=== PATIENT | male | born 1965 | race Caucasian/White ===

== ENCOUNTER 2018-09-25 09:20 | Inpatient (IN) | payer OTHER ==
[~2018-09-25] VITALS: Ht 175.3 cm; Wt 92.5 kg
[2018-09-25] VITALS (25 sets, daily range): BP systolic 109–134; BP diastolic 69–86; PULSE 82–104; RESP 14–20; Ht 175.3 cm; Wt 92.5 kg
--- NOTE | 2018-09-25 12:49 | PREAC ---
Date/Time of Note Date/Time of Note DATE: 09/25/18 TIME: 12:47 Anesthesia Eval and Record Evaluation Time Pre-Procedure Interview DATE: 09/25/18 TIME: 12:47 Age 52 Sex male NPO: 8 hrs Preoperative diagnosis Lt shoulder mass Planned procedure Excision of lt shoulder mass with skin graft Past Medical History Past Medical History: Includes GI: Morbid obesity Heme: Anemia Surgery & Anesthesia Issues No known issue Meds Anticoagulation: No Beta Carlos within 24 hr: No Reason Beta Carlos not given: Pt. not on B-Carlos No Active Prescriptions or Reported Meds Meds reviewed: Yes Allergies Coded Allergies: No Known Allergy (Unverified , 09/25/18) Allergies Reviewed: Yes Labs/Studies Labs Reviewed: Reviewed by anesthesiologist Blood Bank Test 09/25/18 10:55 Antibody Screen NEGATIVE Blood Product Summary Counts Blood Type A POSITIVE Crossmatch Red Blood Cells test: N/A Studies: ECG Pre-procedure Exam Last vitals Vital Signs Date Temp Pulse Resp B/P (MAP) Pulse Ox O2 O2 Flow FiO2 Time Delivery Rate 09/25/18 99.0 89 16 126/73 100 Room Air 11:56 (90) Airway: Adequate mouth opening, Adequate thyromental dist Mallampati: Mallampati II Teeth: Normal Lung: Normal Heart: Normal ASA Physical Status ASA physical status: 2 Emergency: None Planned Pain Management Parenteral pain med Pre-operative Attestations Prior to commencing anesthesia and surgery, the patient was re-evaluated, there was verification of: *The patient's identity *The results of appropriate recent lab work and preoperative vital signs *The above evaluation not changing prior to induction *Anesthetic plan, risk benefits, alternative and complications discussed with patient/family; questions answered; patient/family understands, accepts and wishes to proceed. JOSELUIS MALONE MD Sep 25, 2018 12:49
[2018-09-25] MEDS ORDERED: MIDAZOLAM 1 MG/ML 2 ML INJ ONE (13:21)
[2018-09-25] MEDS ORDERED: PROPOFOL 20 ML ONE (14:28)
[2018-09-25] MEDS ORDERED: CEFAZOLIN 1 GM INJ ONE (14:28)
[2018-09-25] MEDS ORDERED: LIDOCAINE 2% (SDV) 5 ML INJ ONE (14:28)
[2018-09-25] MEDS ORDERED: ONDANSETRON 4 MG INJ ONE (14:28)
--- NOTE | 2018-09-25 14:46 | OPR ---
DATE OF OPERATION: 09/25/2018 PREOPERATIVE DIAGNOSES: 1. Large fungating tumor, left anterior thoracic region. 2. Satellite tumor, left anterior shoulder. POSTOPERATIVE DIAGNOSES: 1. Large fungating tumor, left anterior thoracic region. 2. Satellite tumor, left anterior shoulder. PROCEDURES: 1. Resection of large fungating tumor, left anterior thoracic region with wide local skin flap advan cement closure. 2. Resection of tumor, left anterior shoulder with local skin flap advancement closure. ANESTHESIA: General. ANESTHESIOLOGIST: Solitario Olivares MD SURGEON: Venkat Mendosa MD WATCH REPAIRER APPRENTICE: Wing Disla MD INDICATIONS FOR PROCEDURE: The patient is an unfortunate 52-year-old male who presented with a large standing extremely large at least 15 cm exophytic fungating mass from the anterior thoracic region c linically consistent with malignancy. There was a satellite nodule approximately [address] over the anterior aspect of the shoulder. The patient was counseled as to need for resection of b oth masses as he was becoming anemic due to chronic blood loss from the tumor. He consented and was scheduled for surgery. DESCRIPTION OF PROCEDURE: The patient was brought to the operating theater, placed under general ane sthesia. The left anterior thoracic region and shoulder region were prepped and draped in usual ster ile fashion. Attention was first directed to the larger tumor. A wide elliptical incision was made around at the base of it and taking great care to ensure adequate margin. Subcutaneous tissue was th en dissected with combination of sharp dissection and cautery for significant neovascularization resu lting in bleeding that was controlled with cautery. Specimen was then transected, removed and sent f or permanent pathologic analysis. After controlling the lesion with cautery, FloSeal was placed with in the wound to facilitate further hemostasis. Due to the large defect, it was necessary to raise ve ry large skin flaps both medially and laterally. This was accomplished with cautery. The flaps were rotated together, held in place with towel clips and the skin was then reapproximated with 2-0 nylon sutures in vertical mattress fashion. Attention was then directed to the satellite tumor. Again, w xiao elliptical incision was made with 15-blade scalpel. Subcutaneous tissue was dissected with caute ry. The specimen was elevated, transected and removed and sent for permanent pathologic analysis. T he bleeding was controlled with cautery. Again, FloSeal was placed to maintain hemostasis and again medial and lateral skin flaps were created with cautery and the skin was reapproximated with 2-0 nylo n sutures in vertical mattress fashion. Both areas of the incision were widely infiltrated with 1% li docaine local anesthetic with epinephrine and sterile dressings were applied. The patient tolerated the procedure well. The estimated blood loss was approximately 50 mL. There were no complications a nd the patient was transported in stable condition to the recovery room. Dictated By: VENKAT STOUT/SOM Conf#: [id number] DID#: [id number]
--- NOTE | 2018-09-25 14:47 | PAC ---
Date/Time of Note Date/Time of Note DATE: 09/25/18 TIME: 14:46 Post-Anesthesia Notes Post-Anesthesia Note Last documented vital signs Vital Signs Date Temp Pulse Resp B/P (MAP) Pulse Ox O2 O2 Flow FiO2 Time Delivery Rate 09/25/18 99.0 89 16 126/73 100 Room Air 11:56 (90) Activity: WNL Respiratory function: WNL Cardiovascular function: WNL Mental status: Baseline Pain reasonably controlled: Yes Hydration appropriate: Yes Nausea/Vomiting absent: Yes Comments BP:116/56, P:92, Spo2:100%, T:98,8 JOSELUIS MALONE MD Sep 25, 2018 14:47
[2018-09-25] MEDS ORDERED: ONDANSETRON 4 MG INJ IV PRN ×2 (15:00→16:30)
[2018-09-25] MEDS ORDERED: DIPHENHYDRAMINE 50 MG INJ IV PRN (15:00)
[2018-09-25] MEDS ORDERED: FENTAnyl 50 MCG/ML VIAL IV PRN (15:00)
[2018-09-25] MEDS ORDERED: HYDROmorphONE 1 MG/5 ML IV SYRINGE IV PRN (15:00)
[2018-09-25] MEDS ORDERED: MEPERIDINE 25 MG INJ IV PRN (15:00)
[2018-09-25] MEDS: D5W-0.45 NACL + KCL 20 MEQ 1,000 ML IV SCH ×2 (15:01→22:01)
--- NOTE | 2018-09-25 15:01 | SIPON ---
Date/Time of Note Date/Time of Note DATE: 09/25/18 TIME: 14:59 Operative Report Preoperative Diagnosis Findings gated left anterior thoracic mass and an additional satellite tumor Postoperative Diagnosis Same Operation/Procedure Performed Resection of a fungating left anterior thoracic mass with local skin flap advancement closure and resection of satellite tumor also with local skin flap advancement closure Surgeon see signature line grants and contracts assistant Dr Disla Anesthesia: general Estimated blood loss: 10 - 50 ml's Transfusion Required none Specimen Large fungating mass left anterior thoracic region and tumor left anterior shoulder Grafts/Implants none Complications none KAT DAVIDSON MD Sep 25, 2018 15:01
[2018-09-25] MEDS: HYDROmorphONE 1 MG/5 ML IV SYRINGE IV PRN ×2 (15:28→18:28)
[2018-09-25] MEDS ORDERED: ACETAMINOPHEN 1000MG/100ML IV 100 ML IVPB PRN (15:30)
[2018-09-25] MEDS ORDERED: morphine 2 MG INJ IV PRN (15:30)
[2018-09-25] MEDS ORDERED: CEFAZOLIN 1 GM INJ IM SCH (15:30)
[2018-09-25] MEDS ORDERED: NACL 0.9% 3 ML SYG IV SCH (16:30)
[2018-09-25] MEDS ORDERED: HYDROCODONE/APAP (5/325) TAB PO PRN (16:30)
--- NOTE | 2018-09-25 16:35 | HP ---
Date/Time of Note Date/Time of Note DATE: 09/25/18 TIME: 16:35 Assessment/Plan VTE Prophylaxis Risk score (from Nsg)>0 risk: 3 SCD applied (from Nsg): Yes Pharmacological prophylaxis: other Lines/Catheters IV Catheter Type (from Nrsg): Peripheral IV Assessment/Plan Hospital Course Patient is a male with no significant past medical history except for a fungating mass on his left shoulder and anterior chest for the past few months. Patient had elective surgical removal from surgeon today and currently is sitting in the postanesthesia care unit, patient other than surgical site pain denies chest pain, shortness of breath, nausea, vomiting, headache, abdominal pain, leg pain, bowel or bladder dysfunction. Patient doing well post surgery, does not feel lightheaded or dizzy. Objective Physical exam General: Patient is laying in bed and answers questions appropriately Mentation: Patient is alert and oriented 4, Head: Normocephalic atraumatic Eyes: EOMI, pupils reactive to light Neck: Supple, nontender, midline Respiratory: Clear to auscultation bilaterally Cardiovascular: regular rate, no obvious murmurs Gastrointestinal: non-tender to palpation, bowel sounds heard. Neurological: Moves all extremities spontaneously Skin: Left shoulder surgical site, bandaged Assessment and plan Fungating left shoulder mass -Surgically removed by surgeon -Pathology pending, questionable tumor versus malignancy -Pain control Anemia -Patient received blood during surgical procedure -Secondary to bleeding from fungating mass -Get a stat H&H and continue to transfuse as needed Disposition -Observe overnight for pain and stability, general surgery recommendations appreciated HPI/ROS Admit Date/Time Admit Date/Time Sep 25, 2018 at 15:25 PMH/Family/Social Past Medical History Medications Current Medications Hydromorphone HCl (Dilaudid) 0.2 mg PACU PRN IV MILD PAIN 1-3; Start 09/25/18 at 15:00; Stop 09/25/18 at 19:00 Hydromorphone HCl (Dilaudid) 0.4 mg PACU PRN IV MOD PAIN 4-6 Last administered on 09/25/18at 15:28; Admin Dose 0.4 MG; Start 09/25/18 at 15:00; Stop 09/25/18 at 19:00 Fentanyl (Sublimaze) 25 mcg PACU ORDER PRN IV MILD PAIN 1-3; Start 09/25/18 at 15:00; Stop 09/25/18 at 19:00 Ondansetron HCl (Zofran Inj) 4 mg PACU ORDER PRN IV NAUSEA/VOMITING Last administered on 09/25/18at 15:28; Admin Dose 4 MG; Start 09/25/18 at 15:00; Stop 09/25/18 at 19:00 Meperidine HCl (Demerol) 25 mg PACU ORDER PRN IV .RIGORS Last administered on 09/25/18at 15:28; Admin Dose 25 MG; Start 09/25/18 at 15:00; Stop 09/25/18 at 19:00 Diphenhydramine HCl (Benadryl) 25 mg PACU ORDER PRN IV .PRURITUS; Start 09/25/18 at 15:00; Stop 09/25/18 at 19:00 Potassium Chloride/Dextrose/ Sod Cl 1,000 ml @ 125 mls/hr Q8H IV ; Start 09/25/18 at 15:01 Acetaminophen 100 ml @ 400 mls/hr Q6H PRN IVPB PAIN; Start 09/25/18 at 15:30; Stop 09/26/18 at 15:29 Cefazolin Sodium 50 ml @ 100 mls/hr Q6 IVPB ; Start 09/25/18 at 18:00 IV Flush (NS 3 ml) 3 ml PER PROTOCOL IV ; Start 09/25/18 at 16:30 Ondansetron HCl (Zofran Inj) 4 mg Q6H PRN IV NAUSEA/VOMITING; Start 09/25/18 at 16:30 Acetaminophen (Tylenol Tab) 650 mg Q6H PRN PO .PAIN 1-3 OR TEMP; Start 09/25/18 at 16:30 Acetaminophen/ Hydrocodone Bitart ([place] (5/325)) 1 tab Q6H PRN PO .PAIN 4-6; Start 09/25/18 at 16:30 Morphine Sulfate (morphine) 2 mg Q4H PRN IV .PAIN 7-10; Start 09/25/18 at 16:30 Coded Allergies: No Known Allergy (Unverified , 09/25/18) Exam/Review of Systems Vital Signs Vitals Vital Signs Date Temp Pulse Resp B/P (MAP) Pulse Ox O2 O2 Flow FiO2 Time Delivery Rate 09/25/18 90 14 115/79 100 Nasal 3.0 15:47 (91) Cannula 09/25/18 98.2 15:13 OLLIE BURNS J Sep 25, 2018 16:35
[2018-09-25] MEDS: CEFAZOLIN 1 GM/50 ML (PMX) 50 ML IVPB SCH ×2 (17:07→23:43)
[2018-09-25] MEDS: morphine 2 MG INJ IV PRN (20:54)
[2018-09-26] MEDS: morphine 2 MG INJ IV PRN (01:56)
[2018-09-26 02:06] VITALS: BP 115/74; PULSE 87; RESP 16
[2018-09-26] MEDS: CEFAZOLIN 1 GM/50 ML (PMX) 50 ML IVPB SCH ×4 (05:47→23:36)
[2018-09-26] MEDS: D5W-0.45 NACL + KCL 20 MEQ 1,000 ML IV SCH (06:11)
[2018-09-26 07:23] VITALS: BP 118/76; PULSE 94; RESP 18
[2018-09-26] MEDS: ACETAMINOPHEN 325 MG TAB PO PRN ×2 (12:29→19:55)
[2018-09-26 14:01] VITALS: BP 109/70; PULSE 92; RESP 17
--- NOTE | 2018-09-26 15:41 | PN ---
DATE: 09/26/2018 SUBJECTIVE: Postop day #1, status post resection of the masses from the anterior chest wall, left side and left shoulder and primary closure with local flap advancement. The pathology report is back today. It is preliminary. 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 This has been sent for further evaluation and immunohistochemical staining The patient has received 4 units of blood since admission to the hospital 1 before the operation and 3 units since last night until now. OBJECTIVE: VITAL SIGNS: Stable. Temperature maximum is 99.2, heart rate 94, respiration 18, blood pressure 118/76, saturation 96% on room air. HEART: Regular. LUNGS: Clear. SKIN: Dressing is intact. NEUROLOGIC: The patient has tolerated diet, has been out of bed, walking around. LABORATORY DATA: Electrolyte is normal. Hemoglobin A1c is 6.1. Hematology at 6:58 a.m. today, WBC 13,300 with 78% segmented neutrophils, hemoglobin 8.3, hematocrit 27.8, platelet count 424. PLAN: From surgical point of view, the patient can be discharged home at this time, but apparently per internal medicine service, the patient is going to stay overnight to see the effect of blood transfusion and other medical problems. Dictated By: PIPE BENAVIDEZ MD PS/NTS Conf#: [id number] DID#: [id number] CC: MARIANO BOUCHER MD; KAT DAVIDSON MD;*EndCC* MTDD
--- NOTE | 2018-09-26 17:17 | PN ---
Date/Time of Note Date/Time of Note DATE: 09/26/18 TIME: 17:09 Assessment/Plan VTE Prophylaxis Risk score (from Ns)>0 risk: 2 [place] [facility] [place] Yes SCD contraindicated: other Pharmacological prophylaxis: other Pharm contraindication: other Lines/Catheters IV Catheter Type (from Nrs): Peripheral IV Assessment/Plan Assessment/Plan Fungating left shoulder mass -Surgically removed by surgeon -Pathology pending, questionable tumor versus malignancy -Pain control Leukocytosis - post op Ancef per protocol Anemia -SP blood transfusion during surgery -2/2 bleeding fungating mass- left shoulder -Get a stat H&H and continue to transfuse as needed Disposition -Observe patient for overnight for pain and stability, - possible dc am per general surgery Result Diagram: 09/26/1858 09/26/18 0658 Results 24hrs Laboratory Tests Test 09/26/18 06:58 White Blood Count 13.3 #H Red Blood Count 3.80 L Hemoglobin 8.3 L Hematocrit 27.8 L Mean Corpuscular Volume 73.2 L Mean Corpuscular Hemoglobin 21.8 L Mean Corpuscular Hemoglobin Concent 29.9 L Red Cell Distribution Width 23.1 H Platelet Count 424 H Mean Platelet Volume 9.8 Immature Granulocytes % 0.500 H Neutrophils % 77.9 H Lymphocytes % 11.6 L Monocytes % 8.6 Eosinophils % 1.0 Basophils % 0.4 Nucleated Red Blood Cells % 0.0 Immature Granulocytes # 0.070 H Neutrophils # 10.4 H Lymphocytes # 1.5 Monocytes # 1.2 H Eosinophils # 0.1 Basophils # 0.1 Nucleated Red Blood Cells # 0.0 Sodium Level 141 Potassium Level 4.5 Chloride Level 108 Carbon Dioxide Level 25 Anion Gap 8 Blood Urea Nitrogen 12 Creatinine 0.94 Est Glomerular Filtrat Rate mL/min > 60 Glucose Level 118 Hemoglobin A1c 6.1 H Calcium Level 8.4 Magnesium Level 2.1 Total Bilirubin 0.6 Direct Bilirubin 0.00 Indirect Bilirubin 0.6 Aspartate Amino Transf (AST/SGOT) 13 L Alanine Aminotransferase (ALT/SGPT) 21 Alkaline Phosphatase 50 Total Protein 6.5 Albumin 3.3 Globulin 3.20 Albumin/Globulin Ratio 1.03 Exam/Review of Systems Exam Vitals Vital Signs Date Temp Pulse Resp B/P (MAP) Pulse Ox O2 O2 Flow FiO2 Time Delivery Rate 09/26/18 99.1 92 17 109/70 96 Room Air 14:01 (83) 09/25/18 2.0 18:29 Intake and Output 09/25/18 09/25/18 09/26/18 1515:00 23:00 07:00 IntakeIntake Total 500 ml 350 ml 950 ml OutputOutput Total 50 ml BalanceBalance 450 ml 350 ml 950 ml Constitutional: alert, oriented Psych: nl mood/affect Head: normocephalic Eyes: nl conjunctiva, EOMI, nl lids ENMT: nl external ears & nose Neck: non-tender Respiratory: clear to auscultation Cardiovascular: nl pulses, other Gastrointestinal: soft, non-tender Musculoskeletal: other (sp left shoulder mass surgery) Results Results 24hrs Laboratory Tests Test 09/26/18 06:58 White Blood Count 13.3 #H Red Blood Count 3.80 L Hemoglobin 8.3 L Hematocrit 27.8 L Mean Corpuscular Volume 73.2 L Mean Corpuscular Hemoglobin 21.8 L Mean Corpuscular Hemoglobin Concent 29.9 L Red Cell Distribution Width 23.1 H Platelet Count 424 H Mean Platelet Volume 9.8 Immature Granulocytes % 0.500 H Neutrophils % 77.9 H Lymphocytes % 11.6 L Monocytes % 8.6 Eosinophils % 1.0 Basophils % 0.4 Nucleated Red Blood Cells % 0.0 Immature Granulocytes # 0.070 H Neutrophils # 10.4 H Lymphocytes # 1.5 Monocytes # 1.2 H Eosinophils # 0.1 Basophils # 0.1 Nucleated Red Blood Cells # 0.0 Sodium Level 141 Potassium Level 4.5 Chloride Level 108 Carbon Dioxide Level 25 Anion Gap 8 Blood Urea Nitrogen 12 Creatinine 0.94 Est Glomerular Filtrat Rate mL/min > 60 Glucose Level 118 Hemoglobin A1c 6.1 H Calcium Level 8.4 Magnesium Level 2.1 Total Bilirubin 0.6 Direct Bilirubin 0.00 Indirect Bilirubin 0.6 Aspartate Amino Transf (AST/SGOT) 13 L Alanine Aminotransferase (ALT/SGPT) 21 Alkaline Phosphatase 50 Total Protein 6.5 Albumin 3.3 Globulin 3.20 Albumin/Globulin Ratio 1.03 Medications Medication Current Medications Cefazolin Sodium 50 ml @ 100 mls/hr Q6 IVPB Last administered on 09/26/18at 12:22; Admin Dose 100 MLS/HR; Start 09/25/18 at 18:00 IV Flush (NS 3 ml) 3 ml PER PROTOCOL IV ; Start 09/25/18 at 16:30 Ondansetron HCl (Zofran Inj) 4 mg Q6H PRN IV NAUSEA/VOMITING; Start 09/25/18 at 16:30 Acetaminophen (Tylenol Tab) 650 mg Q6H PRN PO .PAIN 1-3 OR TEMP Last adm inistered on 09/26/18at 12:29; Admin Dose 650 MG; Start 09/25/18 at 16:30 Acetaminophen/ Hydrocodone Bitart ([place] (5/325)) 1 tab Q6H PRN PO .PAIN 4-6; Start 09/25/18 at 16:30 Morphine Sulfate (morphine) 2 mg Q4H PRN IV .PAIN 7-10 Last administered on 09/26/18at 01:56; Admin Dose 2 MG; Start 09/25/18 at 16:30 AVELINA JOSEPH Sep 26, 2018 17:17
[2018-09-26 19:41] VITALS: BP 116/66; PULSE 92; RESP 16
[2018-09-27 01:40] VITALS: BP 119/70; PULSE 84; RESP 16
[2018-09-27] MEDS: CEFAZOLIN 1 GM/50 ML (PMX) 50 ML IVPB SCH ×2 (05:21→12:05)
[2018-09-27 07:25] VITALS: BP 126/76; PULSE 91; RESP 18
[2018-09-27 15:18] VITALS: BP 129/78; PULSE 89; RESP 18
--- NOTE | 2018-09-27 17:27 | PDOCDIS ---
Discharge Instructions CONDITION [id number] Patient Condition: [id number] Stable HOME CARE INSTRUCTIONS: [id number] Diet Instructions: [id number] Regular ACTIVITY: [id number] Activity Restrictions: [id number] Slowly Increase Activity Rest between Activity Avoid heavy lifting Do not Drive Do not operate Machinery Do not operate Power Tool Avoid Heavy Housework [id number] Bathing Restrictions: [id number] Sponge Bath FOLLOW UP/APPOINTMENTS Follow-up Plan FU with primary x 1 wek Fu with surgery as recommended Call 911 or got to the nearest hospital if symptoms get worsr- patient verbalized understanding dc instruction AVELINA Puckett Dr Sep 27, 2018 17:27
[2018-09-27] MEDS ORDERED: CEPH-443 PO (17:31)
--- NOTE | 2018-09-27 17:33 | DS ---
Date/Time of Note Date/Time of Note DATE: 09/27/18 TIME: 17:33 Discharge Summary Admission/Discharge Info Admit Date/Time Sep 26, 2018 at 08:28 Discharge Date/Time Patient Condition: Stable Home Meds Active Scripts Cephalexin* (Keflex*) 500 Mg Capsule, 500 MG PO QID for 5 Days, CAP Prov:AVELINA JOSEPH 09/27/18 Follow-up Plan FU with primary x 1 wek Fu with surgery as recommended Call 911 or got to the nearest hospital if symptoms get worsr- patient verbalized understanding dc instruction Dw Dr Cole Primary Care Provider Not On Staff Doctor Time spent on discharge: < 30 minutes Pending Labs Laboratory Tests Test 09/26/18 17:34 09/26/18 17:35 09/27/18 09:11 Sodium Level 141 140 mmol/L (135-144) mmol/L (135-144) Potassium Level 4.6 4.1 mmol/L (3.5-5.1) mmol/L (3.5-5.1) Chloride Level 107 mmol/L (97-110) 106 mmol/L (97-110) Carbon Dioxide 25 mmol/L (21-31) 27 mmol/L (21-31) Level Anion Gap 9 (5-13) 7 (5-13) Blood Urea 10 mg/dl (7-20) 10 mg/dl (7-20) Nitrogen Creatinine 0.84 0.91 mg/dl (0.61-1.24) mg/dl (0.61-1.24) Est Glomerular > 60 mL/min (>60) > 60 mL/min (>60) Filtrat Rate mL/min Glucose Level 95 mg/dl (70-220) 173 mg/dl (70-220) Calcium Level 9.0 8.7 mg/dl (8.4-10.2) mg/dl (8.4-10.2) White Blood Count 13.4 12.3 10^3/ul (4.8-10.8) 10^3/ul (4.8-10.8) Red Blood Count 4.04 4.11 10^6/ul (4.70-6.10 10^6/ul (4.70-6.10 ) ) Hemoglobin 8.7 8.9 g/dl (14.0-18.0) g/dl (14.0-18.0) Hematocrit 29.3 % (42.0-52.0) 29.9 % (42.0-52.0) Mean Corpuscular 72.5 72.7 Volume fl (82.0-101.0) fl (82.0-101.0) Mean Corpuscular 21.5 21.7 Hemoglobin pg (29.0-33.0) pg (29.0-33.0) Mean Corpuscular 29.7 29.8 Hemoglobin Concent g/dl (32.0-37.0) g/dl (32.0-37.0) Red Cell 23.5 % (11.5-14.5) 24.2 % (11.5-14.5) Distribution Width Platelet Count 393 426 10^3/UL (140-415) 10^3/UL (140-415) Mean Platelet 8.9 fl (7.4-10.4) 9.4 fl (7.4-10.4) Volume Immature 0.600 0.800 Granulocytes % % (0.001-0.429) % (0.001-0.429) Neutrophils % 73.8 % (39.0-77.0) 78.7 % (39.0-77.0) Lymphocytes % 13.6 % (15.0-51.0) 10.5 % (15.0-51.0) Monocytes % 10.0 % (0.0-11.0) 7.8 % (0.0-11.0) Eosinophils % 1.6 % (0.0-7.0) 1.9 % (0.0-7.0) Basophils % 0.4 % (0.0-2.0) 0.3 % (0.0-2.0) Nucleated Red Blood 0.0 0.0 Cells % /100WBC (0.0-0.0) /100WBC (0.0-0.0) Immature 0.080 0.100 Granulocytes # 10^3/ul (0.0-0.031 10^3/ul (0.0-0.031 ) ) Neutrophils # 9.9 9.7 10^3/ul (1.6-7.5) 10^3/ul (1.6-7.5) Lymphocytes # 1.8 1.3 10^3/ul (0.8-2.9) 10^3/ul (0.8-2.9) Monocytes # 1.3 1.0 10^3/ul (0.3-0.9) 10^3/ul (0.3-0.9) Eosinophils # 0.2 0.2 10^3/ul (0.0-0.5) 10^3/ul (0.0-0.5) Basophils # 0.1 0.0 10^3/ul (0.0-0.1) 10^3/ul (0.0-0.1) Nucleated Red Blood 0.0 0.0 Cells # 10^3/ul (0.0-0.0) 10^3/ul (0.0-0.0) AVELINA JOSEPH Sep 27, 2018 17:33
--- NOTE | 2018-09-27 20:11 | PN ---
DATE: 09/27/2018 The patient is postop day #2, status post resection of the fungating mass from the left anterior ches t wall and also another mass on the left shoulder area. SUBJECTIVE: No specific complaint. Has been out of bed and walks around, tolerating diet. If minim al pain, medication was used by the patient. OBJECTIVE: GENERAL: Alert, awake, and oriented. VITAL SIGNS: Temperature maximum today 99.6, heart rate 89, respirations 18, blood pressure 129/78, saturation 99% on room air. HEART: Regular. LUNGS: Clear. Dressing over the left shoulder and chest wall area is intact. EXTREMITIES: Has full range of motion of the left upper extremity. ASSESSMENT: Postop day #2 status post resection of the masses from left shoulder and left anterior c hest wall. The patient is stable. The patient can be discharged home. I should mention that paloma pineda has received 4 units of blood while in the hospital because he had severe anemia. That was due to bleeding from the mass, which was a huge fungating mass. PLAN: The patient can be discharged today and to call Dr. Mendosa' office on Saturday to make an appoint ment for followup. Prescription for pain medication will be given. Dictated By: PIPE BENAVIDEZ MD PS/NTS Conf#: [id number] DID#: [id number] CC: MARIANO BOUCHER MD;*EndCC*
== END 2018-09-27 17:43 | disposition home or self-care (01) | DRG 464 ==
LOC: SDS 09:20 → EDBD 12:30 → EDSEX 12:30 → SDS 15:02 → REC 15:25 → INTOOBSV 15:25 → 2NE 18:40 → OBSVTOIN 09-26 08:28
PROVIDERS: ADMIT Surgery Surgical Oncology; ATTEND Internal Medicine
PROC: 0JB60ZZ Excision of Chest Subcutaneous Tissue and Fascia, Open Approach (ICD-10-PCS; 2018-09-25)
PROC: 0JXF0ZZ Transfer Left Upper Arm Subcutaneous Tissue and Fascia, Open Approach (ICD-10-PCS; 2018-09-25)
PROC: 0JX60ZZ Transfer Chest Subcutaneous Tissue and Fascia, Open Approach (ICD-10-PCS; 2018-09-25)
PROC: 30233N1 Transfusion of Nonautologous Red Blood Cells into Peripheral Vein, Percutaneous Approach (ICD-10-PCS; 2018-09-25)
PROC: 0JBF0ZZ Excision of Left Upper Arm Subcutaneous Tissue and Fascia, Open Approach (ICD-10-PCS; principal; 2018-09-25 12:30)
PROC: 30233N1 Transfusion of Nonautologous Red Blood Cells into Peripheral Vein, Percutaneous Approach (ICD-10-PCS; 2018-09-26)
DX: C49.12 Malignant neoplasm of connective and soft tissue of left upper limb, including shoulder (principal); C49.3 Malignant neoplasm of connective and soft tissue of thorax; D50.0 Iron deficiency anemia secondary to blood loss (chronic)
CPT/HCPCS: 36430; 71045; 80048; 80053; 83036; 83735; 85025; 86850; 86900; 86901; 86920; 88307; 88341; 88342; 93005; 99217; G0378; J0690; J1170; J2175; J2250; J2270; J2405; J3010; J3480; P9016